=== PATIENT | male | born 1995 | race African-American/Black ===

== ENCOUNTER 2020-04-18 09:56 | Emergency (ER) | payer SELFPAY ==
[2020-04-18 10:25] VITALS: BP 143/85
[2020-04-18] MEDS ORDERED: OXYCODONE-ACETAMINOPHEN 5-325 MG TABLET PO ONE (11:48)
--- NOTE | 2020-04-18 11:59 | ER Document Report ---
ED Fall - General Chief Complaint: Fall Injury Stated Complaint: FALL/LEFT ANKLE,FOOT PAIN Time Seen by Provider: 04/18/20 11:45 Primary Care Provider: CRISTHIAN EGAN DO [ACTIVE STAFF] - Follow up as needed Notes: CHIEF COMPLAINT: Left posterior ankle injury HPI: 24-year-old male presenting to the emergency department complaining of injury to the left posterior ankle yesterday. Was playing basketball went to push off and felt something snap behind the ankle. Having difficulty flexing and extending the foot now with pain running up the calf. ROS: See HPI - all other systems were reviewed and are otherwise negative Constitutional: no fever Integumentary: no rash Allergy: no hives Musculoskeletal: no extremity pain or swelling Neurological: no numbness/tingling, no weakness MEDICATIONS: I agree with the patient medications as charted by the RN. ALLERGIES: I agree with the allergies as charted by the RN. PAST MEDICAL HISTORY/PAST SURGICAL HISTORY: Reviewed and agree as charted by RN. SOCIAL HISTORY: Reviewed and agree as charted by RN. FAMILY HISTORY: No significant familial comorbid conditions directly related to patient complaint EXAM: Reviewed vital signs as charted by RN. CONSTITUTIONAL: Alert and oriented and responds appropriately to questions. Well-appearing; well-nourished HEAD: Normocephalic; atraumatic EYES: Conjunctivae clear, sclerae non-icteric ENT: normal nose; no rhinorrhea; moist mucous membranes NECK: Supple without meningismus CARD: symmetric distal pulses RESP: Normal chest excursion without splinting or tachypnea ABD/GI: non-distended. BACK: The back appears normal EXT: Soft tissue swelling to the posterior aspect of the left ankle. There is a deficit at the Achilles insertion point. Dorsalis pedis and posterior tibial pulses are present in the left ankle and foot. Sensation is intact in the toes with capillary refill less than 3 seconds. Positive Dupree test SKIN: Normal color for age and race; warm; dry; good turgor; no acute lesions noted NEURO: Motor and sensory function intact PSYCH: The patient's mood and manner are appropriate. Grooming and personal hygiene are appropriate. MDM: 24-year-old male with what I suspect is an Achilles tear. Will obtain x- ray for fracture, splint with foot extended - Related data Allergies/Adverse Reactions: No Known Allergies Allergy (Verified 04/18/20 11:43) Past Medical History - Social History Smoking Status: Unknown if Ever Smoked Family History: Reviewed & Not Pertinent Physical Exam - Vital signs Vitals: Temp Pulse Resp BP Pulse Ox 99.4 F 105 H 16 143/85 H 99 04/18/20 10:14 04/18/20 10:14 04/18/20 10:14 04/18/20 10:14 04/18/20 10:14 Course - Re-evaluation Re-evalutation: I do not visualize a fracture on my review of the x-ray. 04/18/20 12:00 - Vital Signs Vital signs: Temp Pulse Resp BP Pulse Ox 99.4 F 105 H 16 143/85 H 99 04/18/20 10:14 04/18/20 10:14 04/18/20 10:14 04/18/20 10:14 04/18/20 10:14 Discharge - Discharge Clinical Impression: Achilles tendon tear Qualifiers: Encounter type: initial encounter Laterality: left Qualified Code(s): S86.012A - Strain of left Achilles tendon, initial encounter Condition: Stable Disposition: HOME, SELF-CARE Instructions: Achilles Tendon Rupture ([facility]), Splint Precautions ([facility]) Additional Instructions: 1. ice and elevate the lower extremity as much as possible 2. utilize the crutches as instructed, non weight bearing until evaluated by orthopedics 3. medications for pain as prescribed, no driving on narcotics 4. follow up with orthopedics for further evaluation and treatment, call for appt. Prescriptions: Oxycodone HCl/Acetaminophen [Percocet 5-325 mg Tablet] 1 tab PO Q4H PRN #15 tab PRN Reason: Referrals: CRISTHIAN EGAN DO [ACTIVE STAFF] - Follow up as needed
--- NOTE | 2020-04-18 12:15 | RADIOLOGY REPORT (SQ) ---
EXAM DESCRIPTION: ANKLE LEFT COMPLETE IMAGES COMPLETED DATE/TIME: 04/18/2020 12:06 pm REASON FOR STUDY: achilles rupture COMPARISON: None. NUMBER OF VIEWS: Three views. TECHNIQUE: AP, lateral, and oblique radiographic images acquired of the left ankle. LIMITATIONS: None. FINDINGS: MINERALIZATION: Normal. BONES: No acute fracture or dislocation. No worrisome bone lesions. JOINTS: No effusions. SOFT TISSUES: No soft tissue swelling. No foreign body. OTHER: No other significant finding. IMPRESSION: NEGATIVE STUDY OF THE LEFT ANKLE. NO RADIOGRAPHIC EVIDENCE OF ACUTE INJURY. TECHNICAL DOCUMENTATION: JOB ID: [id number] 2010 [employer]- All Rights Reserved Reading location - IP/workstation name: [email or web address]
== END 2020-04-18 12:25 | disposition home or self-care (01) ==
LOC: ER 09:56
DX: S86.012A Strain of left Achilles tendon, initial encounter (principal); X58.XXXA Exposure to other specified factors, initial encounter
CPT/HCPCS: 99284

== ENCOUNTER 2020-04-27 08:11 | Day surgery (SDC) | payer BC ==
[2020-04-27 10:31] LABS: HEMATOCRIT 43.7 % (37.9-51.0); MEAN CORPUSCULAR HEMOGLOBIN 31.4 pg (27.0-33.4); MEAN CORPUSCULAR HGB CONC 34.2 g/dL (32.0-36.0); MEAN CORPUSCULAR VOLUME 92 fl (80-97); PLATELET COUNT 308 10^3/uL (150-450); RED BLOOD COUNT 4.77 10^6/uL (4.35-5.55); WHITE BLOOD COUNT 7.9 10^3/uL (4.0-10.5)
[2020-04-27] MEDS ORDERED: CEFAZOLIN 2 GM/D5W RTU 2 GM/50 ML RTUPB IV ONE (10:47)
[2020-04-27 10:54] LABS: ANION GAP 10 (5-19); BLOOD UREA NITROGEN 10 mg/dL (7-20); CALCIUM 9.8 mg/dL (8.4-10.2); CARBON DIOXIDE 27 mmol/L (22-30); CHLORIDE 105 mmol/L (98-107); GLUCOSE 108 mg/dL (75-110); POTASSIUM 4.4 mmol/L (3.6-5.0)
[2020-04-27] MEDS ORDERED: ONDANSETRON HCL INJ/PF 4 MG/2 ML SDV ONE (12:47)
[2020-04-27] MEDS ORDERED: FENTANYL CITRATE INJ/PF 100 MCG/2 ML AMPUL ONE (12:47)
[2020-04-27] MEDS ORDERED: MIDAZOLAM 2 MG/2 ML INJ ONE (12:47)
[2020-04-27] MEDS ORDERED: PROPOFOL 1,000 MG/100 ML INFUS..BTL IV ONE (12:47)
[2020-04-27] MEDS ORDERED: BUPIVACAINE HCL 0.25 % INJ/PF (2.5 MG/1 ML) 30 ML VIAL ONE (13:04)
[2020-04-27] MEDS ORDERED: FENTANYL CITRATE INJ/PF 100 MCG/2 ML AMPUL IV PRN ×3 (14:05)
[2020-04-27] MEDS ORDERED: DIPHENHYDRAMINE HCL 50 MG/ML VIAL IV PRN (14:05)
[2020-04-27] MEDS ORDERED: MEPERIDINE HCL/PF INJ 25 MG/1 ML DISP.SYRIN IV PRN (14:05)
[2020-04-27] MEDS ORDERED: MORPHINE SULFATE 10 MG/ML INJ IV PRN ×3 (14:05→17:02)
[2020-04-27] MEDS ORDERED: PROMETHAZINE HCL INJ 25 MG/1 ML VIAL IV PRN ×2 (14:05)
[2020-04-27] MEDS ORDERED: ROPIVACAINE HCL 0.5% INJ/PF (5 MG/1 ML) 30 ML SDV ONE (15:05)
--- NOTE | 2020-04-27 16:53 | Operative Report ---
Operative Report DATE OF SURGERY: 04/27/20 PREOPERATIVE DIAGNOSIS: Left Achilles tendon rupture. POSTOPERATIVE DIAGNOSIS: Left Achilles tendon rupture OPERATION: Left Achilles tendon repair SURGEON: LORETO KERR JR ANESTHESIA: Spinal COMPLICATIONS: None ESTIMATED BLOOD LOSS: 20 cc PROCEDURE: The patient was brought in operating suite and ariadna spinal anesthesia. There were then laid prone on the operating table. 2 g Ancef were provided preoperatively. The left lower extremity was prepped and draped in sterile sterile fashion. The incision was marked and timeout was performed. The tourniquet was inflated to 300 mmHg. An incision was made on the medial aspect of the Achilles tendon. This was centered over the palpable defect and then after slight exposure and confirmation of the area of rupture this was carried proximal and distal for appropriate exposure of the tendon ends in order to gain appropriate fixation. We very carefully dissected out the peritenon and protected it in order to allow for closure at the end of surgery. Small bleeders were lysed with Bovie cautery. We identified the tendon ends and debrided any loose or nonviable appearing tissue. After this a #2 FiberWire was introduced into the proximal segment and a Krakw running fashion along the outside edge of the tendon followed by carrying this back down and leaving 2 limbs of FiberWire out of the end of the tendon. The distal segment with was then treated in similar fashion with a running locked Krakw stitch along the periphery and then back. After this the FiberWire ends from the proximal segment were passed in a nonlocked simple fashion, one limb with the napaimute needle, the other with a free needle. The same technique was used with the distal FiberWire's into the proximal tendon. These were passed through one segment of the Krakw in order to interlock with a Krakw. After this was done each set of sutures were then pulled and allowed for direct compression at the rupture site. One set was then tied securely while the other was held by an field technical assistant. Subsequent to that the other set was then again tensioned and tied securely. The sutures were then cut. Was copiously irrigated with dilute Betadine solution. Attention was insured as well as integrity of the tear by gently dorsiflexion the ankle. We then oversewed the rupture site with a Silverskiold type stitch using a 2-0 PDS. A 2-0 PDS was then used to sew distal peritenon together and a running locking stitch stitch. This was carried throughout the peritenon which was securely closed. Subsequent to this we used a 2-0 Monocryl in inverted interrupted fashion to close the subcutaneous tissue. Finally a 2 oh Quill was used in a subcuticular running stitch to close the skin. We then placed a sterile dressing and placed the patient in a well-padded splint in equinus. He was then awakened from anesthesia and transferred to PACU in stable condition.
[2020-04-27] MEDS ORDERED: OXYCODONE HCL IR 5 MG TABLET PO PRN ×4 (17:02)
[2020-04-27] MEDS ORDERED: ONDANSETRON 4 MG TAB.RAPDIS PO PRN (17:02)
[2020-04-27] MEDS ORDERED: ZOLPIDEM TARTRATE 5 MG TABLET PO PRN (17:02)
[2020-04-27] MEDS ORDERED: NORMAL SALINE 1000 ML 1,000 ML IV PRN (17:02)
[2020-04-27] MEDS ORDERED: DEXAMETHASONE SOD PHOS INJ 10 MG/1 ML VIAL IV ONE (17:02)
[2020-04-27] MEDS ORDERED: TRAMADOL HCL 50 MG TABLET PO PRN (17:02)
[2020-04-27] MEDS ORDERED: TRANEXAMIC ACID INJ/PF 1,000 MG/10 ML SDV IV ONE (17:02)
[2020-04-27] MEDS ORDERED: PANTOPRAZOLE SODIUM 20 MG TABLET.DR PO ONE (17:02)
[2020-04-27] MEDS ORDERED: DIPHENHYDRAMINE HCL 25 MG CAPSULE PO PRN (17:02)
[2020-04-27] MEDS ORDERED: DOCUSATE SODIUM 100 MG CAPSULE PO PRN (17:02)
--- NOTE | 2020-04-27 17:06 | Discharge Summary ---
Discharge Summary (SDC) - Discharge Final Diagnosis: Left Achilles tendon rupture Date of Surgery: 04/27/20 Condition: Stable Forms: ASU Anesthesia D/C Instruction, Discharge POC-Surgical Service Treatment or Instructions: Keep splint clean and dry Nonweightbearing until seen in the office Follow-up in the office in approximately 10 days Take aspirin daily for DVT prophylaxis Referrals: LORETO KERR JR, DO [ACTIVE PROVISIONAL STAFF] - (Follow up as instructed) Respiratory Treatments at Home: Deep Breathing/Coughing Discharge Activity: Activity As Tolerated Home Care Assistance: Provided by Family Adaptive Devices on Discharge: Axillary Crutches Report the Following to Your Physician Immediately: Shortness of Breath, Fever over 101 Degrees, Unusual Bleeding, Drainage-Yellow
[2020-04-27] MEDS ORDERED: ACETAMINOPHEN 325 MG TABLET PO SCH (17:15)
[2020-04-27 17:41] VITALS: BP 140/100
[2020-04-27] MEDS ORDERED: CEFAZOLIN 2 GM/D5W RTU 2 GM/50 ML RTUPB IV SCH (18:00)
[2020-04-27] MEDS ORDERED: GABAPENTIN 100 MG CAPSULE PO SCH (22:00)
[2020-04-27] MEDS ORDERED: KETOROLAC TROMETHAMINE INJ/PF 30 MG/1 ML SDV IV SCH (22:00)
[2020-04-28] MEDS ORDERED: CELECOXIB 200 MG CAPSULE PO SCH (10:00)
[2020-04-28] MEDS ORDERED: ASPIRIN 325 MG TABLET PO SCH (10:00)
[2020-04-28] MEDS ORDERED: POLYETHYLENE GLYCOL 3350 POWDER 17 GM/1 PACKET PO SCH (10:00)
== END 2020-04-27 17:20 | disposition home or self-care (01) ==
LOC: OROUT 08:11
PROVIDERS: ATTEND Orthopaedic Surgery
DX: M66.861 Spontaneous rupture of other tendons, right lower leg (principal)
CPT/HCPCS: 36415; 85027; 80048; 99140; 01472; 27650; J2795; J2250; J3010; J2704; J2405; J0690; 1472

== ENCOUNTER → 2020-04-27 | Outpatient (CLI) | payer BC ==
--- NOTE | 2020-04-27 09:52 | RADIOLOGY REPORT (SQ) ---
EXAM DESCRIPTION: MRI RT LOWER JOINT WITHOUT IMAGES COMPLETED DATE/TIME: 04/27/2020 9:20 am REASON FOR STUDY: M66.861 SPONTANEOUS RUPTURE OF OTHER TENDONS, RIGHT LOWER LEG M66.861 SPONTANEOUS RUPTURE OF OTHER TENDONS, RIGHT LOWER LE COMPARISON: None. TECHNIQUE: Right ankle images acquired and stored on PACS. Multiplanar images include fat sensitive sequences as T1, fluid sensitive sequences as FST2/STIR, cartilage sensitive sequences as FSPD, and g radient echo sequences. LIMITATIONS: None. FINDINGS: BONE MARROW: No alteration of signal to suggest marrow replacement or edema. No occult fra cture. No large osteophytes. EFFUSIONS: No subtalar or tibiotalar effusions. No loose bodies. OSSEOUS ARTICULATIONS: Normal tibiotalar, subtalar, talonavicular and calcaneocuboid joints. TALAR DOME AND TIBIAL PLAFOND: Normal cartilage. No osteochondral defect. ACHILLES TENDON: Complete rupture approximately 6 cm proximal to the insertion. The proximal stump i s outside the field of view. TIBIALIS ANTERIOR TENDON: Intact without edema at the 1st MT attachment. TIBIALIS POSTERIOR TENDON: Normal morphology and no edema at the navicular attachment. No tendon hackett th fluid. FLEXOR HALLUCIS LONGUS AND FLEXOR DIGITORUM TENDONS: Normal morphology and no tendon sheath fluid. No edema of the os trigonum. PERONEUS LONGUS AND BREVIS TENDON: Normal morphology and no tendon sheath fluid. No subluxation. ATFL, CFL, PTFL: Intact. No thickening or signal alteration. No valerie-ligamentous fluid. DELTOID LIGAMENT: Visualized components intact. TARSAL TUNNEL: No masses. No muscle atrophy. SINUS TARSI: No fluid. No reactive marrow edema or erosions. PLANTAR FASCIA: No signal alteration or tear. ADJACENT SOFT TISSUES: No masses. OTHER: No other significant finding. IMPRESSION: Complete rupture of the Achilles tendon. TECHNICAL DOCUMENTATION: JOB ID: [id number] 2010 [employer]- All Rights Reserved Reading location - IP/workstation name: [email or web address]
== END ==
LOC: RAD 07:12
PROVIDERS: ATTEND Orthopaedic Surgery
DX: M66.861 Spontaneous rupture of other tendons, right lower leg (principal)